=== PATIENT | male | born 2000 | race Caucasian/White ===

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

== ENCOUNTER → 2022-02-28 | Outpatient (CLI) | payer OTHER | LOC: M PLALAB 10:55 | PROVIDERS: ATTEND Physician Assistant | DX: R05.1 Acute cough (principal) ==

== ENCOUNTER → 2022-03-28 | Outpatient (REF) | payer OTHER | LOC: M SFHCPLAZ 17:34 | PROVIDERS: ATTEND Physician Assistant | DX: Z20.828 Contact with and (suspected) exposure to other viral communicable diseases (principal) ==

== ENCOUNTER 2022-11-05 00:55 | Emergency (ER) | payer OTHER ==
[~2022-11-05] VITALS: Ht 182.9 cm; Wt 80.0 kg
[2022-11-05] MEDS ORDERED: ACETAMINOPHEN 500 MG TAB PO ONE (06:35)
[2022-11-05 06:55] VITALS: BP 115/61; TEMP 97.8; O2SAT 98
== END 2022-11-05 07:04 | disposition home or self-care (01) ==
LOC: M ED 00:55
DX: S06.0X0A Concussion without loss of consciousness, initial encounter (principal); S00.81XA Abrasion of other part of head, initial encounter; W01.0XXA Fall on same level from slipping, tripping and stumbling without subsequent striking against object, initial encounter; F17.200 Nicotine dependence, unspecified, uncomplicated; F12.10 Cannabis abuse, uncomplicated; Y93.68 Activity, volleyball (beach) (court)